=== PATIENT | female | born 1970 | race Caucasian/White ===

== ENCOUNTER → 2018-04-14 | Outpatient (CLI) | payer OTHER ==
[~2018-04-14] MED LIST: GADOBENATE 529MG/1ML 15ML VIAL IVP ONE
--- NOTE | 2018-04-14 16:04 | RADIOLOGY IMAGING REPORT ---
FACILITY: [facility] [place] PATIENT NAME: Amy Jain : 1970 MR: [id number] V: [id number] EXAM DATE: ORDERING PHYSICIAN: MIO SOTELO TECHNOLOGIST: Location: [facility] Patient: Amy Jain : 1970 Visit/Account:[id number] Date of Sevice: 04/14/2018 L SPINE W W/O CONTRAST Provided history: Low back pain. Lupus. Melody-Danlos syndrome. Additional pertinent history: none TECHNIQUE: Multiplanar multisequence lumbar MRI was performed without and with intravenous contra st Contrast dose: 15 mL of MultiHance. COMPARISON STUDIES: No relevant priors FINDINGS: Segment numbering: Lumbosacral junction at L5-S1. No transitional segment. Extra-spinal soft tissues: Benign cyst right kidney. Alignment: Normal Osseous signal pattern: no significant findings Distal thoracic cord / conus / cauda equina: negative Disc Spaces: Lower T spine: Mild narrowing degeneration T11-12 without herniation or stenosis. T12-L1 normal. L1-L2: Disk height and signal pattern normal. No evidence of disk herniation or central stenosis No significant foraminal stenosis. L2-L3: Disk height and signal pattern normal. No evidence of disk herniation or central stenosi s. No significant foraminal stenosis. L3-L4: Previous PLIF and artificial disc placement the central third of the disc space in good posit ion. Previous posterior decompression. No herniation or central stenosis. Foramina are widely bean nt. L4-L5: Prosthetic disc in the anterior half of the disc space in good position. Alignment is normal . L5 pedicular screws have been removed. There is no herniation or central stenosis. Foramina are widely patent. L5-S1: Disk height and signal pattern normal. No evidence of disk herniation or central stenos is. No significant foraminal stenosis. IMPRESSION: 1. Postoperative changes L3-4 and L4-5 with a widely patent central canal and foramina. 2. No new significant degenerative changes and no significant stenosis elsewhere. Report Dictated By: Joseph Sinclair MD at 04/14/2018 3:52 PM Report E-Signed By: Joseph Sinclair MD at 04/14/2018 3:59 PM [id number]
== END ==
LOC: MRI 10:23
PROVIDERS: ATTEND Nurse Practitioner Family
DX: N28.1 Cyst of kidney, acquired (principal); Z98.890 Other specified postprocedural states; M47.894 Other spondylosis, thoracic region
CPT/HCPCS: 72158; A9577

== ENCOUNTER → 2018-04-20 | Outpatient (CLI) | payer OTHER ==
--- NOTE | 2018-04-20 13:26 | RADIOLOGY IMAGING REPORT ---
FACILITY: [facility] PATIENT NAME: Amy Jain : 1970 MR: [id number] V: [id number] EXAM DATE: ORDERING PHYSICIAN: MARIAH HANNA TECHNOLOGIST: Location: [facility] Patient: Amy Jain : 1970 Visit/Account:[id number] Date of Sevice: 04/20/2018 MRI left knee without contrast Indication: Knee pain with popping. Instability. Comparison: None available. Technique: Multiplanar, multisequence MRI examination is performed of the left knee without contrast. Findings: Examination of the medial compartment demonstrates a normal medial meniscus. The articular cartilage surfaces are normal. Examination of the lateral compartment demonstrates a normal lateral meniscus. The articular cartilag e surfaces are normal. Examination of the patellofemoral compartment demonstrates partial-thickness linear fissuring at the median ridge of the patella without subchondral edema or cyst formation. The adjacent trochlear surfa ari are maintained. The ACL and PCL are intact. There is lobulated T2 signal associated with the ACL at its tibial insert ion. This lobulated signal extends along the anterior margin of the joint space and the anterior horn of the lateral meniscus. This measures up to 7 mm x 5 mm x 15 mm in size and is consistent with a ga nglion cyst. There is mild thickening of the proximal third of the MCL with mild surrounding edema. Correlate for a low-grade proximal MCL sprain. No tearing is seen. The lateral collateral ligament complex is maintained. The extensor mechanism is intact. A small joint effusion is seen. There is susceptibility artifact seen along the anterior aspect of th e midportion of the patellar tendon. Correlate clinically. This may be postsurgical. This could also represent a small foreign body. Correlate with plain films. IMPRESSION: 1. Intact left knee menisci and cruciate ligaments. 2. Linear fissuring along the median ridge of the patella. 3. Lobulated ganglion cyst associated with the tibial insertion of the ACL and extending along the an terior horn of the lateral meniscus. See discussion above. 4. Question low-grade proximal third MCL sprain. 5. Focal area of artifact within the soft tissues overlying the middle portion of the patellar tendon . Correlate clinically. Report Dictated By: Mendel Culp at 04/20/2018 1:14 PM Report E-Signed By: Mendel Culp at 04/20/2018 1:22 PM WSN:[id number]
== END ==
LOC: MRI 01:26
PROVIDERS: ATTEND Physician Assistant Surgical
DX: M67.462 Ganglion, left knee (principal)

== ENCOUNTER 2018-05-31 17:23 | Emergency (ER) | payer OTHER ==
--- NOTE | 2018-05-31 18:06 | ER Report ---
History and Physical Time Seen By MD: 18:07 HPI/ROS CHIEF COMPLAINT: Postoperative bruising and pain HISTORY OF PRESENT ILLNESS: 48-year-old female patient presents to emergency room with complaint of postoperative bruising and pain. Patient states that she had her right hip replaced on Friday this past week. She states that she has noticed increased pain whenever she uses the Lovenox shot. Patient states that she had been up and moving around and was doing so without a walker without any assistance. She states that after she takes Lovenox the morning she has significant amounts of pain to the right leg. She states she's noticed worsening bruising since taking the Lovenox. She states that she has almost gone through all of her pain medication because the pain has been so severe. She denies having fevers, however she states she has been chilled and warm, although she believes is likely secondary to her autoimmune diseases. REVIEW OF SYSTEMS: Respiratory: No cough, no dyspnea. Cardiovascular: No chest pain, no palpitations. Gastrointestinal: No vomiting, no abdominal pain. Musculoskeletal: As noted above Allergies: Coded Allergies: tetracycline (Verified Allergy, Severe, 05/31/18) acetaminophen (Verified Allergy, Intermediate, 05/31/18) hydromorphone (Verified Allergy, Intermediate, 05/31/18) morphine (Verified Allergy, Intermediate, 05/31/18) oxycodone (Verified Allergy, Intermediate, 05/31/18) propoxyphene (Verified Allergy, Intermediate, 05/31/18) azithromycin (Verified Allergy, Unknown, 05/31/18) erythromycin base (Verified Allergy, Unknown, 05/31/18) Past Medical/Surgical History Patient has a past medical history of migraines, PO2 yes, asthma, reflux, gastroparesis, hiatal hernia, annular Danlos syndrome, back pain, lupus. Patient has surgical history of thyroidectomy, hysterectomy, shoulder surgery, right hip replacement. Reviewed Nurses Notes: Yes Constitutional Vital Sign - Last 24 Hours 05/31/18 05/31/18 05/31/18 05/31/18 18:05 18:06 18:08 18:23 Temp 98.3 Pulse 75 77 72 Resp 18 B/P (MAP) 134/86 (102) 134/86 Pulse Ox 95 96 96 O2 Delivery Room Air 05/31/18 05/31/18 05/31/18 05/31/18 18:30 19:00 19:05 19:20 Pulse ? B/P (MAP) ???/??? (166) ???/??? (166) 05/31/18 05/31/18 05/31/18 05/31/18 19:30 19:50 20:05 20:15 Pulse ? B/P (MAP) ???/??? (166) 126/78 (94) 05/31/18 05/31/18 05/31/18 05/31/18 20:20 20:30 20:35 20:50 Pulse 72 67 61 B/P (MAP) 123/79 (94) Pulse Ox 92 94 97 05/31/18 05/31/18 21:00 21:05 Pulse 65 B/P (MAP) 120/90 (100) Pulse Ox 93 Physical Exam General Appearance: The patient is alert, has no immediate need for airway protection and no current signs of toxicity. Respiratory: Chest is non tender, lungs are clear to auscultation. Cardiac: regular rate and rhythm Gastrointestinal: Abdomen is soft and non tender, no masses, bowel sounds normal. Musculoskeletal: Neck: Neck is supple and non tender. Extremities have full range of motion and are non tender. Patient has bruising to the right hip, she also has some bruising around the knee. She has tenderness around the bruising, however she does not have any tenderness distal to the bruising. Skin: No rashes or lesions. DIFFERENTIAL DIAGNOSIS: After history and physical exam differential diagnosis was considered for postoperative pain, bruising, hematoma, persistent bleed. Medical Decision Making Data Points Result Diagram: 05/31/18184605/31/181846 Laboratory Hematology Test 05/31/18 17:29 05/31/18 18:37 05/31/18 18:47 Urine Color Yellow Urine Clarity Clear Urine pH 6.0 pH (4.8-9.5) Urine Specific [place] 1.014 Urine Protein Negative mg/dL (NEGATIVE) Urine Glucose (UA) Negative mg/dL (NEGATIVE) Urine Ketones Negative mg/dL (NEGATIVE) Urine Blood Negative (NEGATIVE) Urine Nitrite Negative (NEGATIVE) Urine Bilirubin Negative (NEGATIVE) Urine Urobilinogen 4.0 mg/dL (0.2-1.9) Urine Leukocyte Esterase Negative (NEGATIVE) Urine RBC <1 /HPF (0-2/HPF) Urine WBC <1 /HPF (0-5/HPF) Urine Squamous Epithelial Cells None /LPF (</=FEW) Urine Bacteria Negative /HPF (NONE-FEW) Urine Mucus None /HPF (NONE-FEW) Prothrombin Time 12.0 seconds (12.0-14.4) Prothromb Time International Ratio 0.89 Activated Partial Thromboplast Time 32 seconds (23-35) Red Blood Count 4.22 M/uL (4.17-5.56) Mean Corpuscular Volume 91.3 fL (80.0-96.0) Mean Corpuscular Hemoglobin 32.0 pg (26.0-33.0) Mean Corpuscular Hemoglobin Concent 35.0 g/dL (32.0-36.0) Red Cell Distribution Width 14.7 % (11.5-14.5) Mean Platelet Volume 8.0 fL (7.2-11.1) Neutrophils (%) (Auto) 75.4 % (39.4-72.5) Lymphocytes (%) (Auto) 17.4 % (17.6-49.6) Monocytes (%) (Auto) 5.3 % (4.1-12.4) Eosinophils (%) (Auto) 0.7 % (0.4-6.7) Basophils (%) (Auto) 1.2 % (0.3-1.4) Nucleated RBC Relative Count (auto) 0.2 /100WBC Neutrophils # (Auto) 7.4 K/uL (2.0-7.4) Lymphocytes # (Auto) 1.7 K/uL (1.3-3.6) Monocytes # (Auto) 0.5 K/uL (0.3-1.0) Eosinophils # (Auto) 0.1 K/uL (0.0-0.5) Basophils # (Auto) 0.1 K/uL (0.0-0.1) Nucleated RBC Absolute Count (auto) 0.02 K/uL Peripheral Blood Smear Yes Y/N Sodium Level 140 mmol/L (137-145) Potassium Level 4.1 mmol/L (3.5-5.0) Chloride Level 101 mmol/L (98-107) Carbon Dioxide Level 29 mmol/L (22-31) Blood Urea Nitrogen 14 mg/dl (7-18) Creatinine 0.90 mg/dl (0.52-1.04) Glomerular Filtration Rate Calc > 60.0 Random Glucose 107 mg/dl (75-110) Calcium Level 9.0 mg/dl (8.4-10.2) Total Bilirubin 0.8 mg/dl (0.2-1.3) Aspartate Amino Transf (AST/SGOT) 34 U/L (0-35) Alanine Aminotransferase (ALT/SGPT) 50 U/L (0-56) Alkaline Phosphatase 60 U/L (0-126) Total Protein 6.3 g/dl (6.3-8.2) Albumin 3.6 g/dl (3.5-5.0) Chemistry Test 05/31/18 17:29 05/31/18 18:37 05/31/18 18:47 Urine Color Yellow Urine Clarity Clear Urine pH 6.0 pH (4.8-9.5) Urine Specific [place] 1.014 Urine Protein Negative mg/dL (NEGATIVE) Urine Glucose (UA) Negative mg/dL (NEGATIVE) Urine Ketones Negative mg/dL (NEGATIVE) Urine Blood Negative (NEGATIVE) Urine Nitrite Negative (NEGATIVE) Urine Bilirubin Negative (NEGATIVE) Urine Urobilinogen 4.0 mg/dL (0.2-1.9) Urine Leukocyte Esterase Negative (NEGATIVE) Urine RBC <1 /HPF (0-2/HPF) Urine WBC <1 /HPF (0-5/HPF) Urine Squamous Epithelial Cells None /LPF (</=FEW) Urine Bacteria Negative /HPF (NONE-FEW) Urine Mucus None /HPF (NONE-FEW) Prothrombin Time 12.0 seconds (12.0-14.4) Prothromb Time International Ratio 0.89 Activated Partial Thromboplast Time 32 seconds (23-35) White Blood Count 9.8 k/uL (4.5-11.0) Red Blood Count 4.22 M/uL (4.17-5.56) Hemoglobin 13.5 g/dL (12.0-16.0) Hematocrit 38.5 % (34.0-47.0) Mean Corpuscular Volume 91.3 fL (80.0-96.0) Mean Corpuscular Hemoglobin 32.0 pg (26.0-33.0) Mean Corpuscular Hemoglobin Concent 35.0 g/dL (32.0-36.0) Red Cell Distribution Width 14.7 % (11.5-14.5) Platelet Count 343 K/uL (150-450) Mean Platelet Volume 8.0 fL (7.2-11.1) Neutrophils (%) (Auto) 75.4 % (39.4-72.5) Lymphocytes (%) (Auto) 17.4 % (17.6-49.6) Monocytes (%) (Auto) 5.3 % (4.1-12.4) Eosinophils (%) (Auto) 0.7 % (0.4-6.7) Basophils (%) (Auto) 1.2 % (0.3-1.4) Nucleated RBC Relative Count (auto) 0.2 /100WBC Neutrophils # (Auto) 7.4 K/uL (2.0-7.4) Lymphocytes # (Auto) 1.7 K/uL (1.3-3.6) Monocytes # (Auto) 0.5 K/uL (0.3-1.0) Eosinophils # (Auto) 0.1 K/uL (0.0-0.5) Basophils # (Auto) 0.1 K/uL (0.0-0.1) Nucleated RBC Absolute Count (auto) 0.02 K/uL Peripheral Blood Smear Yes Y/N Glomerular Filtration Rate Calc > 60.0 Calcium Level 9.0 mg/dl (8.4-10.2) Total Bilirubin 0.8 mg/dl (0.2-1.3) Aspartate Amino Transf (AST/SGOT) 34 U/L (0-35) Alanine Aminotransferase (ALT/SGPT) 50 U/L (0-56) Alkaline Phosphatase 60 U/L (0-126) Total Protein 6.3 g/dl (6.3-8.2) Albumin 3.6 g/dl (3.5-5.0) Coagulation Test 05/31/18 18:37 Prothrombin Time 12.0 seconds Prothromb Time International Ratio 0.89 Activated Partial Thromboplast Time 32 seconds Urinalysis Test 05/31/18 17:29 Urine Color Yellow Urine Clarity Clear Urine pH 6.0 pH (4.8-9.5) Urine Specific [place] 1.014 Urine Protein Negative mg/dL (NEGATIVE) Urine Glucose (UA) Negative mg/dL (NEGATIVE) Urine Ketones Negative mg/dL (NEGATIVE) Urine Blood Negative (NEGATIVE) Urine Nitrite Negative (NEGATIVE) Urine Bilirubin Negative (NEGATIVE) Urine Urobilinogen 4.0 mg/dL (0.2-1.9) Urine Leukocyte Esterase Negative (NEGATIVE) Urine RBC <1 /HPF (0-2/HPF) Urine WBC <1 /HPF (0-5/HPF) Urine Squamous Epithelial Cells None /LPF (</=FEW) Urine Bacteria Negative /HPF (NONE-FEW) Urine Mucus None /HPF (NONE-FEW) EKG/Imaging Imaging INDICATION: post surgical pain. DATE: 05/31/2018 8:05 PM. TECHNIQUE: FEMUR RIGHT W CONTRAST. Postcontrast axial CT imaging was performed through the right femur with sagittal and coronal reformats. 95 mL Isovue 370 administered. One of the following dose optimization techniques was utilized in the performance of this exam: Automated exposure control; adjustment of the mA and/or kV according to the patient's size; or use of an iterative reconstruc tion technique. Specific details can be referenced in the facility's radiology CT exam operational policy. COMPARISON: None relevant. FINDINGS: The right hip prosthesis appears intact without evidence of periprosthetic fracture or loosening. No dislocation. The acetabular wall appears intact. Soft tissue gas within the anterolateral soft tissues is commensurate with an anterolateral approach and is as expected postoperatively. Small foci of high density material within the operative bed superficially presumably reflect vascular ligature or fascial closure. There is expected stranding along the operative site. No discrete fluid collection or abscess. IMPRESSION: Right hip prosthesis without apparent complication. Report Dictated By: Shilpa Rodriguez MD at 05/31/2018 8:05 PM Report E-Signed By: Shilpa Rodriguez MD at 05/31/2018 8:16 PM ED Course/Re-evaluation ED Course Patient was admitted to an exam room, history and physical were obtained. Differential diagnoses were considered. On examination lungs are clear, heart is regular, abdomen is soft and nontender. Patient had pain and swelling to the right leg. Swelling appeared to be fairly mild at this point in time. A CBC, CMP, urinalysis, CT scan of the right femur was done. Lab work was unremarkable. CT scan of the femur showed changes which would be consistent with recent surgery. I discussed the case with Dr. Stearns, orthopedic surgeon in [place] who is an associate of Dr. Erickson who did the surgery. He felt that the bruising that she was having was likely secondary to surgery and not necessarily the anticoagulation. He wanted to go ahead and continue with anticoagulation as is and have her call into the office tomorrow. He felt that they would likely want to change her anticoagulation to something different such as Xarelto. However with patient not tolerating aspirin in the hospital I do have concerns about her being able to tolerate Xarelto. I discussed the findings with the patient as well as my discussion with Dr. Stearns. We'll go ahead and discharge patient home at this time. She is to return to the emergency room if condition worsens. I recommend that she follow-up with the orthopedic surgeon to get more pain medication as that will look more appropriate than getting a prescription from the emergency room as well. Patient verbalized understanding and agreement with plan. Decision to Disposition Date: May 31, 2018 Decision to Disposition Time: 21:02 Depart Departure Latest Vital Signs Vital Signs Date Time Temp Pulse Resp B/P (MAP) Pulse Ox O2 Delivery O2 Flow Rate FiO2 05/31/18 21:05 65 93 05/31/18 21:00 120/90 (100) 05/31/18 18:06 98.3 18 Room Air Impression: Primary Impression: Post surgical complication Condition: Improved Disposition: HOME OR SELF-CARE Patient Instructions: GENERAL ER DISCHARGE INSTRUCTIONS Additional Instructions: Limit activity by pain. Elevate leg. Take your medication as prescribed. Call your surgeons office tomorrow. Return to the ER if condition worsens. Increase fluid intake. Problem Qualifiers Primary Impression: Post surgical complication Surgical complication system/body Area: subcutaneous tissue Surgical complication type: other Qualified Codes: L76.82 - Other postprocedural complications of skin and subcutaneous tissue MIO SOTELO May 31, 2018 18:06
[2018-05-31] MEDS ORDERED: IOPAMIDOL 76% 100 ML INFUS BTL 100 ML ONE (18:27)
[2018-05-31] MEDS ORDERED: fentaNYL CITR 100 MCG/2 ML AMP IVP ONE ×2 (18:45→19:15)
[2018-05-31 18:59] LABS: PLATELET COUNT, AUTOMATED 343 K/uL (150-450)
[2018-05-31 19:42] LABS: INR 0.89
--- NOTE | 2018-05-31 20:20 | RADIOLOGY IMAGING REPORT ---
FACILITY: [facility] [place] PATIENT NAME: Amy Jain : 1970 MR: [id number] V: [id number] EXAM DATE: ORDERING PHYSICIAN: MIO SOTELO TECHNOLOGIST: Location: [facility] [place] Patient: Amy Jain : 1970 Visit/Account:[id number] Date of Sevice: 05/31/2018 INDICATION: post surgical pain. DATE: 05/31/2018 8:05 PM. TECHNIQUE: FEMUR RIGHT W CONTRAST. Postcontrast axial CT imaging was performed through the right fem ur with sagittal and coronal reformats. 95 mL Isovue 370 administered. One of the following dose op timization techniques was utilized in the performance of this exam: Automated exposure control; adjus tment of the mA and/or kV according to the patient's size; or use of an iterative reconstruction ernestine hnique. Specific details can be referenced in the facility's radiology CT exam operational policy. COMPARISON: None relevant. FINDINGS: The right hip prosthesis appears intact without evidence of periprosthetic fracture or loos ening. No dislocation. The acetabular wall appears intact. Soft tissue gas within the anterolateral soft tissues is commensurate with an anterolateral approach and is as expected postoperatively. Small foci of high density material within the operative bed sup erficially presumably reflect vascular ligature or fascial closure. There is expected stranding patricia g the operative site. No discrete fluid collection or abscess. IMPRESSION: Right hip prosthesis without apparent complication. Report Dictated By: Shilpa Rodriguez MD at 05/31/2018 8:05 PM Report E-Signed By: Shilpa Rodriguez MD at 05/31/2018 8:16 PM [id number]
[2018-05-31 21:00] VITALS: BP 120/90
== END 2018-05-31 21:10 | disposition home or self-care (01) ==
LOC: ER 18:02
DX: L76.82 Other postprocedural complications of skin and subcutaneous tissue (principal); Z96.641 Presence of right artificial hip joint; Z79.01 Long term (current) use of anticoagulants
CPT/HCPCS: 73701; 81001; 85025; 85610; 85730; 96374; 99284; J3010; Q9967; 82040; 82247; 82310; 82374; 82435; 82565; 82947; 84075; 84132; 84155; 84295; 84450; 84460; 84520

== ENCOUNTER 2018-08-26 09:27 | Outpatient (RCR) | payer OTHER ==
--- NOTE | 2018-06-04 10:23 | PT INITIAL EVALUATION ---
MEDICAL DIAGNOSIS: R Hip Pain, Unilateral primary osteoarthritis TREATMENT DIAGNOSIS: s/p R RYAN, generalized weakness, Melody-Danlos DATE OF ONSET: 05/25/18 SUBJECTIVE: Amy is a 48 year old female s/p R RYAN with an anterior approach on May 25, 2018. Pt has a past medical history significant for Melody- Danlos and Lupus. Pt states that in the future she will be having her L hip replaced as well as B knees. Pt presents to physical therapy using a single point cane for gait and stability but states that she is only using the cane when she is ambulating community distances. Pt states that her incision site had a wound dressing with a negative pressure pump to prevent infection. However, pt states that the pump stopped working on Friday, 06/01. Pt states that she is currently having no pain, but pain increases at night to a 7-8/10 at worst. Pt states that she is managing her pain with ice and pain medication. Pt also reports that she took a tumble down the stairs a few days ago but reports that the hip is doing okay, but does have some lateral R knee pain. Pt states that her R hip is about 5 mm higher than the L. Pt reports that she would like to return to her occupation at the [employer] for [employer]. REHAB PROBLEM LIST: Increased Pain Decreased ROM Decreased Strength Decreased Endurance Decreased Balance Decreased Function Decreased ADL's Decreased Mobility Decreased Gait PREVIOUS MEDICAL HISTORY: See EMR OBJECTIVE: Through assessment of pt's incision site, slight skin irritation was found around the bandage around the incision site. No signs of infection. ROM: Hip ROM (R,L): Flexion: 95 w/ pain, 116, Abd: 40, 50, Ext: Not tested at this time Strength: Hip MMT (R, L):flex: 4-, 4, Abd: 3+, 4, Add: 5, 5 Knee MMT (R, L): Ext: 5 w/ lat. knee pain, 5, flex: 4+ w/ slight hip pain, 5, B Medial and lateral quad activation is equal at 10/10 repetitions. Ankle MMT (R, L): DF: 4, 4, PF: 5, 5 Gait: Pt is using a single point cane to ambulate community distances but is using no assistive device for household distances. Pt has a R hip hike in swing phase of gait. Other Objective Findings: FOTO Hip Functional Status: 23/50 - 54% impairment ASSESSMENT: Amy presents to physical therapy with signs and symptoms consistent with a R RYAN. Physical therapy is indicated to address the above impairments to improve overall function with ADL's and to return to occupational responsibilities. Upon first treatment pt was started on HEP and a heel lift was inserted into the L shoe to help achieve equal PSIS alignment. Short Term Goals In 3 weeks pt will no longer require assistive device for community distances to improve function with ADL's. In 3 weeks pt will improve R hip ROM to equal to the contralateral side to improve function with ADL's and occupational responsibilities. In 6 weeks pt will improve LE MMT to 5/5 bilaterally to improve overall function with ADL's and occupational responsibilities. In 6 weeks pt will improve FOTO Hip Functional Status to 42% impairment improving FOTO hip functional status to 29/50. Patient's Goals Pt's goals are to return to work, lose weight and improve overall mobility. PLAN: Patient to be seen for Manual Therapy/STM/MET Strengthening/condition Ice/Heat Range of Motion Ultrasound Stretching Iontophoresis Neuromuscular Re-ed Closed Chain Program Electrical Stim Posture/Body mechanics Gait Trg/Balance Trg Biofeedback Home Exercise Program Therapeutic Activities 2x/Week for 6 Weeks If you have any questions, comments, or concerns about this report or plan, please contact me at . Thank you, Colette Ayon, PT, DPT, CLT Ricarda Higgins, SPT This Physical Therapist was present for the entire physical therapy session directing the services, making the skilled judgement, and was not engaged in treating another patient or doing another task at the same time as the treatment session. GABID
--- NOTE | 2018-07-20 12:42 | PT PLAN OF CARE ---
Physician: Dr. Yayo Erickson Patient is being seen: 2x/Week Therapist: Colette Ayon, PT, DPT, CLT Medical Diagnosis: R Hip Pain, Unilateral primary osteoarthritis Treatment Diagnosis: s/p R RYAN, generalized weakness, Melody-Danlos Date of Onset: 05/25/18 Date of Initial Evaluation: 06/04/18 Date patient was last seen: 07/20/18 Number of treatments: 9 Number of cancellations/No shows: 2 INTERVENTIONS: Manual Therapy/STM/MET Strengthening/condition Ice/Heat Range of Motion Ultrasound Stretching Iontophoresis Neuromuscular Re-ed Closed Chain Program Electrical Stim Posture/Body mechanics Gait Trg/Balance Trg Biofeedback Home Exercise Program Therapeutic Activities GOALS: In 6 weeks pt will improve LE MMT to 5/5 bilaterally to improve overall function with ADL's and occupational responsibilities. In Progress In 6 weeks pt will improve R hip ROM to equal to the contralateral side to improve function with ADL's and occupational responsibilities. MET In 3 weeks pt will no longer require assistive device for community distances to improve function with ADL's. MET In 6 weeks pt will improve FOTO Hip Functional Status to 42% impairment improving FOTO hip functional status to 29/50. MET PATIENT'S GOAL: Pt's goals are to return to work, lose weight and improve overall mobility. Status of Patient's Goals: 3/4 MET, 1/4 In Progress Patient Compliance: Good Prognosis: Good Reasons for discharge from therapy: Amy is to discharge from physical therapy at this time secondary to insurance restrictions. At the time of discharge, Amy shows good progress with normal hip ROM and improved hip strength and stability. Pt remains to have anterior hip impingement with squatting motions, but shows improvement with slow work for capsular mobility. Additionally, pt shows some SIJ hypermobility resulting in neurological impingement down the L leg which was assessed and should improve with exercise. Pt was placed on an HEP to continue gains in strength and improved function with the R hip. Pt is to have L RYAN on 07/16/18 at this time and will receive further PT following this surgery which will likely further progress the R hip. ROM: Hip ROM (R,L): Flexion: 120, 116 Strength: Hip MMT (R, L):flex: 4+, 4, Abd: 5, 5, Add: 5, 5, ext: 4+, 5- Knee MMT (R, L): Ext: 5 , 5, flex: 5, 5. Ankle MMT (R, L): DF: 5, 5, PF: 5, 5 Outcome Measure: TO Hip Functional Status 36/50=28% impairment. If you have any questions or concerns, please feel free to contact me at [phone]. Thank you, Colette Ayon, PT, DPT, CLT MTDD
--- NOTE | 2018-08-10 15:20 | PT PLAN OF CARE ---
Physician: Dr. Yayo Erickson Patient is being seen: 2/week Therapist: Evin Garcia, PT, DPT Medical Diagnosis: L Hip Pain, Unilateral primary osteoarthritis Treatment Diagnosis: s/p L RYAN, generalized weakness, Melody-Danlos Date of Onset: 05/25/18 Date of Initial Evaluation: 06/04/18 Date patient was last seen: 08/10/18 Number of treatments: 10: reassessment of L RYAN Number of cancellations/No shows: 0 INTERVENTIONS: Manual Therapy/STM/MET Strengthening/condition Ice/Heat Range of Motion Ultrasound Stretching Iontophoresis Neuromuscular Re-ed Closed Chain Program Electrical Stim Posture/Body mechanics Gait Trg/Balance Trg Biofeedback Home Exercise Program Therapeutic Activities GOALS: In 6 weeks pt will improve LE MMT to 5/5 bilaterally to improve overall function with ADL's and occupational responsibilities. In 6 weeks pt will improve R hip ROM to equal to the contralateral side to improve function with ADL's and occupational responsibilities. In 3 weeks pt will no longer require assistive device for community distances to improve function with ADL's. In 6 weeks pt will improve FOTO Hip Functional Status to 42% impairment improving FOTO hip functional status to 29/50. PATIENT'S GOAL: Pt's goals are to return to work, lose weight and improve overall mobility. Status of Patient's Goals: [g OPPT.GOALS] Patient Compliance: [g PT.GFPNA] Prognosis: Good Reasons for continuing therapy: This is a reassessment of her L hip replacement that occurred on 08/05/18. She reports that she tweaked her R hip 1.5 weeks prior to having the L hip replaced. She reports that she tried to get xrays on the R hip prior to the L hip but she states that the PA blew her off while [place] surgeon [place]. She reports that she is having a much more difficult time since she has a pinching pain on the R hip and increased L hip pain around the incision. She reports that it feels like someone or something is constantly cutting like sensation. She rates her current pain to 7-8/10 with tears flowing. She reports that she has had times where she is a 10/10. She reports that it is extremely difficult to walk, to move, to get up from a chair due to the new L hip replacement and the pain coming from the older R hip replacement. She reports that she will change the bandage this Friday and then will follow up with her surgeon the following Friday. Based on my examination, she presents to physical therapy with signs and symptoms consistent with L RYAN. We will addressed the listed impairments to return to prior level of function to increased QOL. OBJECTIVE: Through assessment of pt's incision site, slight skin irritation was found around the bandage around the incision site. No signs of infection ROM: Hip ROM (R,L): Flexion: 90 w/ pain, 116, Abd: 40, 50, Ext: Not tested at this time Strength: Hip MMT (R, L):flex: 4, 3, Abd: 4, 3, Add: 5, 5 Knee MMT (R, L): Ext: 5 w/ lat. knee pain, 5, flex: 5, 5, B Quad activation is great. Ankle MMT (R, L): DF: 4, 4, PF: 5, 5 Gait: Pt is using a FWW to ambulate community distances and for household distances. Pt has a L LE circumduction in swing phase of gait. Other Objective Findings: FOTO Hip Functional Status: 1050 - 80% impairment If you have any questions or concerns, please contact me at [phone]. Thank you, Evin Garcia, PT, DPT GABID
[2018-08-29] MEDS ORDERED: PROM-110 PO (06:55)
[2018-08-29] MEDS ORDERED: DICL18CA (06:55)
[2018-08-29] MEDS ORDERED: HYDR-653 PO (06:55)
[2018-08-29] MEDS ORDERED: PRED-420 PO (06:55)
[2018-08-29] MEDS ORDERED: TIZA4CAP6 PO (06:55)
[2018-08-29] MEDS ORDERED: [UNRECOGNIZED DRUG - CODE] IU (06:55)
[2018-08-29] MEDS ORDERED: ESOM40CA42 PO (06:55)
[2018-08-29] MEDS ORDERED: LOR1 (06:55)
[2018-08-29] MEDS ORDERED: ONDA4TAB9 PO (06:55)
[2018-08-29] MEDS ORDERED: AMIT-108 PO (06:55)
[2018-08-29] MEDS ORDERED: GABA-549 PO (06:55)
[2018-08-29] MEDS ORDERED: MIRA25TA PO (06:55)
[2018-08-29] MEDS ORDERED: METH-542 PO (06:55)
[2018-08-29] MEDS ORDERED: NEBI5TAB PO (06:55)
[2018-08-29] MEDS ORDERED: BELI120V IV (06:55)
[2018-08-29] MEDS ORDERED: LEVO-3 PO (06:55)
[2018-08-30] MEDS ORDERED: FLUC150T40 PO (10:06)
== END 2018-09-02 ==
LOC: PT 09:27
PROVIDERS: ATTEND Orthopaedic Surgery
DX: Z47.1 Aftercare following joint replacement surgery (principal); M16.11 Unilateral primary osteoarthritis, right hip; Z96.641 Presence of right artificial hip joint; R53.1 Weakness; Q79.6 Ehlers-Danlos syndromes; M25.561 Pain in right knee
CPT/HCPCS: 97162

== ENCOUNTER → 2018-08-27 | Outpatient (CLI) | payer OTHER ==
--- NOTE | 2018-08-27 10:33 | RADIOLOGY IMAGING REPORT ---
FACILITY: [facility] - [place] PATIENT NAME: Amy Jain : 1970 MR: [id number] V: [id number] EXAM DATE: ORDERING PHYSICIAN: LIZZY ECHEVARRIA TECHNOLOGIST: Location: [facility] Patient: Amy Jain : 1970 Visit/Account:[id number] Date of Sevice: 08/27/2018 MRI pelvis and right hip Indication: Pain. History of arthroplasty. Popping sensation. Comparison: CT scan 05/31/2018 was reviewed. Technique: Multiplanar, multisequence MRI examination is performed of the pelvis and right hip withou t contrast. Metal artifact reduction sequences were utilized. Findings: There are bilateral total hip arthroplasties in place. The left total hip arthroplasty is new since t May 2018 CT scan. On the right, there is metal susceptibility artifact related to the arthroplasty device. Given the li mitations, there is edema present within the soft tissues anterior to the hip joint and involving the proximal quadriceps musculature. This is due to complete avulsion of the rectus femoris tendon from the right anterior-inferior iliac spine. This is best appreciated in the coronal plane. There is up t o 1.3 cm of tendon retraction at the site of tendon avulsion. The edema present in the soft tissues a ppears centered about the proximal myotendinous junction. There is expected operative bed scarring wi th trace fluid anteriorly and lateral to the hip joint in keeping with prior arthroplasty placement. On the left side, there is fluid signal seen anterior to the hip joint likely an operative bed seroma . This suggests an anterior approach for arthroplasty placement. Correlate clinically. There is an ad ditional area of fluid signal within the subcutaneous tissues anteriorly and laterally. This measures up to 7.4 x 2.3 x 12.9 cm in size. This is also most consistent with an evolving operative bed serom a. Marrow pattern of the bony pelvis and sacrum is normal. Postoperative changes involve the low lumbar spine. IMPRESSION: 1. Complete avulsion of the right rectus femoris tendon from its origin from the right anterior infer ior iliac spine with up to 1.3 cm of tendon retraction. There is associated myotendinous edema extend ing into the upper thigh musculature. 2. Interval placement of a left total hip arthroplasty since prior CT imaging in May 2018 with s uspected operative bed seroma formation within the anterior musculature and in the anterolateral subc utaneous tissues. Measurements of the subcutaneous collection as reported above. Report Dictated By: Mendel Culp at 08/27/2018 10:13 AM Report E-Signed By: Mendel Culp at 08/27/2018 10:29 AM WSN:[id number]
== END ==
LOC: MRI 00:49
PROVIDERS: ATTEND Nurse Practitioner Family
DX: S39.093A Other injury of muscle, fascia and tendon of pelvis, initial encounter (principal); Z96.642 Presence of left artificial hip joint

== ENCOUNTER 2018-08-29 06:32 | Observation (INO) | payer OTHER ==
[2018-08-29] VITALS (8 sets, daily range): BP systolic 77–135; BP diastolic 50–83
[~2018-08-29] VITALS: Ht 167.6 cm; Wt 103.9 kg
[2018-08-29] MEDS ORDERED: ESOM40CA42 PO (06:55)
[2018-08-29] MEDS ORDERED: TIZA4CAP6 PO (06:55)
[2018-08-29] MEDS ORDERED: DICL18CA (06:55)
[2018-08-29] MEDS ORDERED: BELI120V IV (06:55)
[2018-08-29] MEDS ORDERED: LOR1 (06:55)
[2018-08-29] MEDS ORDERED: LEVO-3 PO (06:55)
[2018-08-29] MEDS ORDERED: PROM-110 PO (06:55)
[2018-08-29] MEDS ORDERED: MIRA25TA PO (06:55)
[2018-08-29] MEDS ORDERED: [UNRECOGNIZED DRUG - CODE] IU (06:55)
[2018-08-29] MEDS ORDERED: NEBI5TAB PO (06:55)
[2018-08-29] MEDS ORDERED: PRED-420 PO (06:55)
[2018-08-29] MEDS ORDERED: METH-542 PO (06:55)
[2018-08-29] MEDS ORDERED: HYDR-653 PO (06:55)
[2018-08-29] MEDS ORDERED: AMIT-108 PO (06:55)
[2018-08-29] MEDS ORDERED: ONDA4TAB9 PO (06:55)
[2018-08-29] MEDS ORDERED: GABA-549 PO (06:55)
--- NOTE | 2018-08-29 07:05 | ER Report ---
History and Physical Time Seen By MD: 07:05 Hx. of Stated Complaint: RLQ abd. pain since last night; at 0420 patient had "two of norco for hip pain" HPI/ROS CHIEF COMPLAINT: Right lower quadrant abdominal pain since yesterday HISTORY OF PRESENT ILLNESS: Patient is a 48-year-old female here with complaints of right lower quadrant abdominal pain since yesterday. Patient took 2 of her [place] tablets this morning at approximate 420 which she is prescribed for hip pain status post hip replacement bilaterally. 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 Patient denies having prior appendectomy. Patient does report that the pain is significantly worse this morning prompting evaluation. Patient is afebrile at time of evaluation complaining of severe sharp pain. Denies urinary complaints, diarrhea, melena. REVIEW OF SYSTEMS: Constitutional: No fever, no chills. Eyes: No discharge. ENT: No sore throat. Cardiovascular: No chest pain, no palpitations. Respiratory: No cough, no shortness of breath. Gastrointestinal: + Right lower quadrant abdominal pain, + nausea Genitourinary: No hematuria. No urgency Musculoskeletal: No back pain. Skin: No rashes. Neurological: No headache. Allergies: Coded Allergies: tetracycline (Verified Allergy, Severe, 05/31/18) acetaminophen (Verified Allergy, Intermediate, 05/31/18) hydromorphone (Verified Allergy, Intermediate, 05/31/18) morphine (Verified Allergy, Intermediate, 05/31/18) oxycodone (Verified Allergy, Intermediate, 05/31/18) propoxyphene (Verified Allergy, Intermediate, 05/31/18) azithromycin (Verified Allergy, Unknown, 05/31/18) erythromycin base (Verified Allergy, Unknown, 05/31/18) Home Meds Active Scripts Fluconazole (DIFLUCAN) 150 Mg Tablet, 300 MG PO QDAY for prophylaxis for 2 Days, CAP Prov:LINDA ROSE MD 08/30/18 Reported Medications Methocarbamol (ROBAXIN) 500 Mg Tablet, 1500 MG PO TID 08/29/18 Mirabegron (MYRBETRIQ) 25 Mg Tab.er.24h, 25 MG PO 08/29/18 Hyaluronate Sodium (ORTHOVISC) 30 Mg/2 Ml Disp.syrin, 30 MG IU 08/29/18 Gabapentin (GABAPENTIN) 300 Mg Capsule, 300 MG PO TID, CAPSULE 08/29/18 Prednisone 10 Mg Tab (PREDNISONE 10 MG TAB) 10 Mg Tab.ds.pk, 10 MG PO, TAB 08/29/18 Nebivolol Hcl (BYSTOLIC) 5 Mg Tablet, 15 MG PO 08/29/18 Levothyroxine Sodium (LEVOTHYROXINE SODIUM) 100 Mcg Tablet, 100 MCG PO QDAY, TAB 08/29/18 Lorazepam (LORAZEPAM) 1 Mg Tab, TAB 08/29/18 Tizanidine Hcl (ZANAFLEX) 4 Mg Capsule, 4 MG PO TID, CAPSULE 08/29/18 Ondansetron 4 Mg Odt (ONDANSETRON 4 MG ODT) 4 Mg Tab.rapdis, 4 MG PO ONCE, TAB 08/29/18 Promethazine Hcl (PROMETHAZINE HCL) 25 Mg Tablet, 25 MG PO Q8H, TAB 08/29/18 Hydrocodone Bit/Acetaminophen (NORCO 5-325 TABLET) 1 Each Tablet, 10 MG PO Q4- 6H, TAB 08/29/18 Amitriptyline Hcl (AMITRIPTYLINE HCL) 50 Mg Tablet, 50 MG PO QHS, #5 TAB 08/29/18 Diclofenac Submicronized (Zorvolex) 18 Mg Capsule 08/29/18 Esomeprazole Magnesium (NEXIUM) 40 Mg Capsule.dr, 1 CAP PO QDAY, CAP 08/29/18 Hx Substance Use Disorder: No Hx Alcohol Use: No Constitutional Physical Exam General Appearance: The patient is alert, has no immediate need for airway protection and no signs of toxicity. No acute distress Eyes: Pupils equal and round no pallor or injection. ENT, Mouth: Mucous membranes are moist. Respiratory: There are no retractions, lungs are clear to auscultation. Cardiovascular: Regular rate and rhythm. [ ] Gastrointestinal: Right lower quadrant abdominal pain, no rebound or guarding or peritoneal signs Neurological: No focal neurological findings Skin: Warm and dry, no rashes. Musculoskeletal: Neck is supple non tender. Extremities are nontender, nonswollen and have full range of motion. DIFFERENTIAL DIAGNOSIS: After history and physical exam differential diagnosis was considered for abdominal pain including but not limited to appendicitis, cholecystitis, gastritis and urinary tract infection. Medical Decision Making Data Points Laboratory Hematology Test 08/29/18 07:56 2/23/19 08:28 Red Blood Count 4.11 M/uL (4.17-5.56) Mean Corpuscular Volume 90.7 fL (80.0-96.0) Mean Corpuscular Hemoglobin 29.6 pg (26.0-33.0) Mean Corpuscular Hemoglobin Concent 32.6 g/dL (32.0-36.0) Red Cell Distribution Width 15.0 % (11.5-14.5) Mean Platelet Volume 8.2 fL (7.2-11.1) Neutrophils (%) (Auto) 61.7 % (39.4-72.5) Lymphocytes (%) (Auto) 27.9 % (17.6-49.6) Monocytes (%) (Auto) 7.3 % (4.1-12.4) Eosinophils (%) (Auto) 2.2 % (0.4-6.7) Basophils (%) (Auto) 0.9 % (0.3-1.4) Nucleated RBC Relative Count (auto) 0.0 /100WBC Neutrophils # (Auto) 4.6 K/uL (2.0-7.4) Lymphocytes # (Auto) 2.1 K/uL (1.3-3.6) Monocytes # (Auto) 0.5 K/uL (0.3-1.0) Eosinophils # (Auto) 0.2 K/uL (0.0-0.5) Basophils # (Auto) 0.1 K/uL (0.0-0.1) Nucleated RBC Absolute Count (auto) 0.00 K/uL Sodium Level 136 mmol/L (137-145) Potassium Level 3.7 mmol/L (3.5-5.0) Chloride Level 106 mmol/L (98-107) Carbon Dioxide Level 25 mmol/L (22-31) Blood Urea Nitrogen 15 mg/dl (7-18) Creatinine 0.70 mg/dl (0.52-1.04) Glomerular Filtration Rate Calc > 60.0 Random Glucose 87 mg/dl (75-110) Calcium Level 8.4 mg/dl (8.4-10.2) Total Bilirubin 0.7 mg/dl (0.2-1.3) Aspartate Amino Transf (AST/SGOT) 17 U/L (0-35) Alanine Aminotransferase (ALT/SGPT) 25 U/L (0-56) Alkaline Phosphatase 72 U/L (0-126) C-Reactive Protein 2.0 mg/dl (<1.0) Total Protein 6.2 g/dl (6.3-8.2) Albumin 3.7 g/dl (3.5-5.0) Lipase 74 U/L (23-300) Urine Color Straw Urine Clarity Clear Urine pH 7.0 pH (4.8-9.5) Urine Specific Comfort 1.005 Urine Protein Negative mg/dL (NEGATIVE) Urine Glucose (UA) Negative mg/dL (NEGATIVE) Urine Ketones Negative mg/dL (NEGATIVE) Urine Blood Negative (NEGATIVE) Urine Nitrite Negative (NEGATIVE) Urine Bilirubin Negative (NEGATIVE) Urine Urobilinogen Negative mg/dL (0.2-1.9) Urine Leukocyte Esterase Negative (NEGATIVE) Urine RBC None /HPF (0-2/HPF) Urine WBC <1 /HPF (0-5/HPF) Urine Squamous Epithelial Cells Few /LPF (</=FEW) Urine Bacteria Few /HPF (NONE-FEW) Urine Mucus None /HPF (NONE-FEW) Chemistry Test 08/29/18 07:56 08/29/18 08:28 White Blood Count 7.4 k/uL (4.5-11.0) Red Blood Count 4.11 M/uL (4.17-5.56) Hemoglobin 12.2 g/dL (12.0-16.0) Hematocrit 37.3 % (34.0-47.0) Mean Corpuscular Volume 90.7 fL (80.0-96.0) Mean Corpuscular Hemoglobin 29.6 pg (26.0-33.0) Mean Corpuscular Hemoglobin Concent 32.6 g/dL (32.0-36.0) Red Cell Distribution Width 15.0 % (11.5-14.5) Platelet Count 293 K/uL (150-450) Mean Platelet Volume 8.2 fL (7.2-11.1) Neutrophils (%) (Auto) 61.7 % (39.4-72.5) Lymphocytes (%) (Auto) 27.9 % (17.6-49.6) Monocytes (%) (Auto) 7.3 % (4.1-12.4) Eosinophils (%) (Auto) 2.2 % (0.4-6.7) Basophils (%) (Auto) 0.9 % (0.3-1.4) Nucleated RBC Relative Count (auto) 0.0 /100WBC Neutrophils # (Auto) 4.6 K/uL (2.0-7.4) Lymphocytes # (Auto) 2.1 K/uL (1.3-3.6) Monocytes # (Auto) 0.5 K/uL (0.3-1.0) Eosinophils # (Auto) 0.2 K/uL (0.0-0.5) Basophils # (Auto) 0.1 K/uL (0.0-0.1) Nucleated RBC Absolute Count (auto) 0.00 K/uL Glomerular Filtration Rate Calc > 60.0 Calcium Level 8.4 mg/dl (8.4-10.2) Total Bilirubin 0.7 mg/dl (0.2-1.3) Aspartate Amino Transf (AST/SGOT) 17 U/L (0-35) Alanine Aminotransferase (ALT/SGPT) 25 U/L (0-56) Alkaline Phosphatase 72 U/L (0-126) C-Reactive Protein 2.0 mg/dl (<1.0) Total Protein 6.2 g/dl (6.3-8.2) Albumin 3.7 g/dl (3.5-5.0) Lipase 74 U/L (23-300) Urine Color Straw Urine Clarity Clear Urine pH 7.0 pH (4.8-9.5) Urine Specific Comfort 1.005 Urine Protein Negative mg/dL (NEGATIVE) Urine Glucose (UA) Negative mg/dL (NEGATIVE) Urine Ketones Negative mg/dL (NEGATIVE) Urine Blood Negative (NEGATIVE) Urine Nitrite Negative (NEGATIVE) Urine Bilirubin Negative (NEGATIVE) Urine Urobilinogen Negative mg/dL (0.2-1.9) Urine Leukocyte Esterase Negative (NEGATIVE) Urine RBC None /HPF (0-2/HPF) Urine WBC <1 /HPF (0-5/HPF) Urine Squamous Epithelial Cells Few /LPF (</=FEW) Urine Bacteria Few /HPF (NONE-FEW) Urine Mucus None /HPF (NONE-FEW) Urinalysis Test 08/29/18 08:28 Urine Color Straw Urine Clarity Clear Urine pH 7.0 pH (4.8-9.5) Urine Specific Comfort 1.005 Urine Protein Negative mg/dL (NEGATIVE) Urine Glucose (UA) Negative mg/dL (NEGATIVE) Urine Ketones Negative mg/dL (NEGATIVE) Urine Blood Negative (NEGATIVE) Urine Nitrite Negative (NEGATIVE) Urine Bilirubin Negative (NEGATIVE) Urine Urobilinogen Negative mg/dL (0.2-1.9) Urine Leukocyte Esterase Negative (NEGATIVE) Urine RBC None /HPF (0-2/HPF) Urine WBC <1 /HPF (0-5/HPF) Urine Squamous Epithelial Cells Few /LPF (</=FEW) Urine Bacteria Few /HPF (NONE-FEW) Urine Mucus None /HPF (NONE-FEW) EKG/Imaging Imaging Location: [facility] Patient: Amy Jain : 1970 Visit/Account:[id number] Date of Sevice: 08/29/2018 EXAMINATION: CT abdomen with IV contrast CT pelvis with IV contrast HISTORY: Right lower quadrant pain. TECHNIQUE: Spiral scan was through the abdomen and pelvis during injection of nonionic iodinated intravenous contrast. Sagittal and coronal reformatted images are also submitted. One of the following dose optimization techniques was utilized in the performance of this exam: Automated exposure control; adjustment of the mA and/or kV according to the patient's size; or use of an iterative reconstruction technique. Specific details can be referenced in the facility's radiology CT exam operational policy. CONTRAST: 75 mL of IV Isovue-370 COMPARISON: None available. FINDINGS: Lower chest: Negative. Liver / biliary: Negative. Pancreas: Negative. Spleen: Negative. Adrenal glands: Negative. Kidneys: Bilateral nonobstructing kidney stones measuring up to 3 mm. 2.7 x 2.0 cm cyst in the posterior right kidney. Pelvic structures: Not well seen secondary to streak artifact from the bilateral hip arthroplasty. Postop hysterectomy. 2.9 x 2.4 cm cyst in the right ovary. Bowel: The distal appendix is mildly hyperenhancing and measures up to 8 mm with questionable mild surrounding fat stranding. No obstruction or bowel wall thickening. Peritoneum / retroperitoneum / mesenteries: Negative. Vessels: Negative. Lymph nodes: Negative. Musculoskeletal / Body wall: Bilateral hip arthroplasty. Degenerative and postsurgical changes in the lumbar spine. IMPRESSION: 1. Borderline dilated distal appendix measuring 8 mm with mild hyperenhancement and questionable mild surrounding fat stranding (coronal image 62; sagittal image 56; axial images 108-122). Possible early appendicitis versus normal appendix. 2. 2.9 x 2.4 cm right ovarian cyst. 3. Bilateral nonobstructing kidney stones measuring up to 3 mm. ED Course/Re-evaluation ED Course Patient is a 48-year-old female with a history significant for lupus, Melody- Danlos, on chronic steroids here with complaints of right lower quadrant abdominal pain which is been constant since yesterday morning. Patient denies urinary complaints, melena, diarrhea. Patient is afebrile, hemodynamically stable at time of evaluation. Patient was identified to have appendicitis on CT imaging. I discussed the findings with Dr. Rose who accepted the patient to general surgery service. Patient was stable at time of admission. Decision to Disposition Date: Sep 26, 2018 Decision to Disposition Time: 11:00 Depart Departure Latest Vital Signs Impression: Primary Impression: Appendicitis Condition: Improved Disposition: Admitted from ER New Scripts Fluconazole (DIFLUCAN) 150 Mg Tablet 300 MG PO QDAY for prophylaxis for 2 Days, CAP Prov: LINDA ROSE MD 08/30/18 ROSA DELATORRE DO Aug 29, 2018 07:05
[2018-08-29] MEDS ORDERED: NS(*) 0.9% 1000 ML BAG 1,000 ML IV ONE (07:20)
[2018-08-29] MEDS ORDERED: IOPAMIDOL 76% 75 ML INFUS BTL 75 ML ONE (07:49)
[2018-08-29] MEDS ORDERED: fentaNYL CITR 100 MCG/2 ML AMP IVP ONE ×2 (07:50→09:10)
[2018-08-29 08:10] LABS: PLATELET COUNT, AUTOMATED 293 K/uL (150-450)
--- NOTE | 2018-08-29 09:07 | RADIOLOGY IMAGING REPORT ---
FACILITY: [facility] PATIENT NAME: Amy Jain : 1970 MR: [id number] V: [id number] EXAM DATE: ORDERING PHYSICIAN: ROSA DELATORRE TECHNOLOGIST: [place] [facility] [place] Patient: Amy Jain : 1970 Visit/Account:[id number] Date of Sevice: 08/29/2018 EXAMINATION: CT abdomen with IV contrast CT pelvis with IV contrast HISTORY: Right lower quadrant pain. TECHNIQUE: Spiral scan was through the abdomen and pelvis during injection of nonionic iodinated in travenous contrast. Sagittal and coronal reformatted images are also submitted. One of the following dose optimization techniques was utilized in the performance of this exam: Autom ated exposure control; adjustment of the mA and/or kV according to the patient's size; or use of an i terative reconstruction technique. Specific details can be referenced in the facility's radiology C T exam operational policy. CONTRAST: 75 mL of IV Isovue-370 COMPARISON: None available. FINDINGS: Lower chest: Negative. Liver / biliary: Negative. Pancreas: Negative. Spleen: Negative. Adrenal glands: Negative. Kidneys: Bilateral nonobstructing kidney stones measuring up to 3 mm. 2.7 x 2.0 cm cyst in the barrel rifler button ior right kidney. Pelvic structures: Not well seen secondary to streak artifact from the bilateral hip arthroplasty. Postop hysterectomy. 2.9 x 2.4 cm cyst in the right ovary. Bowel: The distal appendix is mildly hyperenhancing and measures up to 8 mm with questionable mild marroquin rrounding fat stranding. No obstruction or bowel wall thickening. Peritoneum / retroperitoneum / mesenteries: Negative. Vessels: Negative. Lymph nodes: Negative. Musculoskeletal / Body wall: Bilateral hip arthroplasty. Degenerative and postsurgical changes in the lumbar spine. IMPRESSION: 1. Borderline dilated distal appendix measuring 8 mm with mild hyperenhancement and questionable mild surrounding fat stranding (coronal image 62; sagittal image 56; axial images 108-122). Possible mariangel y appendicitis versus normal appendix. 2. 2.9 x 2.4 cm right ovarian cyst. 3. Bilateral nonobstructing kidney stones measuring up to 3 mm. Findings concerning the appendix and right ovary were called to ROSA DELATORRE at 08/29/2018 8:59 AM. Report Dictated By: Serafin Lr MD at 08/29/2018 8:50 AM Report E-Signed By: Serafin Lr MD at 08/29/2018 9:03 AM WSN:[id number]
[2018-08-29] MEDS ORDERED: ONDANSETRON 4 MG/2 ML VIAL IVP ONE (09:30)
[2018-08-29] MEDS ORDERED: NORMOSOL R SOLN(*) 1000 ML BAG 1,000 ML IV ONE (09:35)
[2018-08-29] MEDS ORDERED: FAMOTIDINE(*) 20MG/50ML PREMIX 50 ML IVPB ONE (09:35)
[2018-08-29] MEDS ORDERED: PIPERACILLIN/TAZO* 4.5 GM VIAL 4.5 GM in NS(*) 0.9% 100 ML ADDVANT BAG 100 ML IVPB ONE (10:45)
[2018-08-29] MEDS ORDERED: BUPIV/EPI 0.25% 1:200,000 50ML INFIL ONE (11:06)
[2018-08-29] MEDS ORDERED: fentaNYL CITR 250 MCG/5 ML AMP ONE (11:14)
[2018-08-29] MEDS ORDERED: PROPOFOL EMUL(*) 10MG/ML 20 ML 20 ML ONE (11:15)
[2018-08-29] MEDS ORDERED: LIDOCAINE 2% IV 100 MG/5ML SYR ONE (11:15)
[2018-08-29] MEDS ORDERED: methylPREDNIS SUCC 125 MG/2ML IVP ONE ×2 (11:25→16:25)
[2018-08-29] MEDS ORDERED: MIDAZOLAM 2 MG/2 ML VIAL IVP ONE (11:30)
--- NOTE | 2018-08-29 11:30 | Gen Surgery History & Physical ---
History of Present Illness Chief Complaint RLQ abdominal pain History of Present Illness 48 y/o female with 24 hours of RLQ abd pain. Malaise. + Nausea Pain increased with movement; made better if she does not move/min relief with narcotics Denies vomiting, diarrhea, constipation or anorexia. Denies radiation, blood in urine, hx of jaundice or pancreatitis. Does take steroids Prednisone 10 mg QD (on taper from 20 mg- this high over past 2 months) AND Belimumab for Lupus.Melody-Danlos Syndrome/Sjgren syndrome/DJD Nl daily BMs. 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 GERD Gastroparesis Renal lithiasis, bilateral, multiple Positional orthostatic tachycardia syndrome Syncope, frequent Hypothyroidism Asthma, mild PTSD, post anesthesia Bilateral Ovarian cysts Bladder incontinence Social: Lives in [place], [place] with 27 y/o daughter Works: [employer] and [employer]; [employer]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 [place] Habits: No Tobacco or ETOH FAMILY HX; Mother Alive- Heart dz, DM Father- Alive, unknown Sister- Alive, Graves dz and Lupus Daughter- Lupus History Problems: (1) Abdominal pain, right lower quadrant Status: Acute (2) Morbid obesity with BMI of 40.0-44.9, adult Status: Chronic (3) Melody-Danlos syndrome Status: Chronic (4) Sjogrens syndrome Status: Chronic (5) Steroid dependence Status: Chronic (6) Asthma Status: Chronic (7) DJD (degenerative joint disease) Status: Chronic (8) Bladder hypertonicity Status: Chronic (9) Gastroparesis Status: Chronic (10) GERD (gastroesophageal reflux disease) Status: Chronic (11) ORTHOSTATIC HYPOTENSION Status: Chronic (12) SYNCOPE AND COLLAPSE Status: Chronic (13) POSTPROCEDURAL HYPOTHYROIDISM Status: Chronic (14) Renal calculi Status: Chronic (15) Lupus (systemic lupus erythematosus) Status: Chronic Comment: On Chronic Prednisone and Belimumab Home Meds Reported Medications Methocarbamol (ROBAXIN) 500 Mg Tablet, 1500 MG PO TID 2/23/19 Mirabegron (MYRBETRIQ) 25 Mg Tab.er.24h, 25 MG PO 08/29/18 Hyaluronate Sodium (ORTHOVISC) 30 Mg/2 Ml Disp.syrin, 30 MG IU 08/29/18 Gabapentin (GABAPENTIN) 300 Mg Capsule, 300 MG PO TID, CAPSULE 08/29/18 Belimumab (BENLYSTA) 120 Mg Vial, 120 MG IV, VIAL 08/29/18 Prednisone 10 Mg Tab (PREDNISONE 10 MG TAB) 10 Mg Tab.ds.pk, 10 MG PO, TAB 08/29/18 Nebivolol Hcl (BYSTOLIC) 5 Mg Tablet, 15 MG PO 08/29/18 Levothyroxine Sodium (LEVOTHYROXINE SODIUM) 100 Mcg Tablet, 100 MCG PO QDAY, TAB 08/29/18 Lorazepam (LORAZEPAM) 1 Mg Tab, TAB 08/29/18 Tizanidine Hcl (ZANAFLEX) 4 Mg Capsule, 4 MG PO TID, CAPSULE 08/29/18 Ondansetron 4 Mg Odt (ONDANSETRON 4 MG ODT) 4 Mg Tab.rapdis, 4 MG PO ONCE, TAB 08/29/18 Promethazine Hcl (PROMETHAZINE HCL) 25 Mg Tablet, 25 MG PO Q8H, TAB 08/29/18 Hydrocodone Bit/Acetaminophen (NORCO 5-325 TABLET) 1 Each Tablet, 10 MG PO Q4- 6H, TAB 08/29/18 Amitriptyline Hcl (AMITRIPTYLINE HCL) 50 Mg Tablet, 50 MG PO QHS, #5 TAB 08/29/18 Diclofenac Submicronized (Zorvolex) 18 Mg Capsule 08/29/18 Esomeprazole Magnesium (NEXIUM) 40 Mg Capsule.dr, 1 CAP PO QDAY, CAP 08/29/18 Allergies: Coded Allergies: tetracycline (Verified Allergy, Severe, 05/31/18) acetaminophen (Verified Allergy, Intermediate, 05/31/18) hydromorphone (Verified Allergy, Intermediate, 05/31/18) morphine (Verified Allergy, Intermediate, 05/31/18) oxycodone (Verified Allergy, Intermediate, 05/31/18) propoxyphene (Verified Allergy, Intermediate, 05/31/18) azithromycin (Verified Allergy, Unknown, 05/31/18) erythromycin base (Verified Allergy, Unknown, 05/31/18) Review of Systems Constitutional: Weight Gain (7-8 pounds past 2 months with steroid use); No Fever, No Weight Loss, No Chills, No Night Sweats Neurological: Syncope (Chronic- has a working dog for this); No Confusion, No Weakness, No Dizziness, No Slurred Speech Eyes: Vision Change (Chronic , intermiottent, none recently); No Loss of Vision ENT: No Hearing Loss, No Sinus Congestion, No Sore Throat Cardiovascular: Chest Pain (When having PVCs); No Palpitations, No Orthostatic Hypotension Respiratory: Shortness of Breath (More since Nov- less frequent ambulation due to hip surgery); No Cough, No Wheezing Gastrointestinal: Nausea; No Vomiting, No Diarrhea, No Dysphagia, No Constipation; Early Satiety; No Hematemesis, No Hematochezia, No Melena; Abdominal Pain (RLQ without radiation or migration) Genitourinary: No Dysuria, No Hematuria, No Urinary Incontinence Musculoskeletal: Pain (Right Hip), Impaired Mobility; No Sprain, No Strain Psychiatric: No Depression, No Anxiety Other Bruises easily; No bleeding issues Exam General Appearance: Alert, Awake, Afebrile, Other (Mild distress; Worse with movement; BMI 40) Neuro: No Gross deficits Eyes: PERRLA, Other (EOMI) ENT: Normal, Moist Mucous Membranes, Oropharynx Clear Neck: No Masses Cardiovascular: Normal Rhythm & Peripheral Pulses, Regular Rate and Rhythm, No Edema, No JVD Respiratory: No Respiratory Distress, Clear to Auscultation GI: Other (RLQ tenderness with percussion tenderness and guarding; No Rovsings; Soft else where; BMI 40- obese; No palpable hernia) : Normal, No CVA Tenderness Lymph: No Adenopathy Musculoskeletal: Other (Veras with Right hip motion) Extremities: Soft and Non Tender, Warm, Pulses, Perfused; No Edema Integumentary: Skin Intact without Lesion / Mass; No Jaundice, No Pallor, No Cyanosis Psych: Alert & Oriented X3, Appropriate Mood & Affect Medical Decision Making Data Points Result Diagram: 08/29/18 0756 08/29/18 0756 UA- negative EKG / Imaging Monitor Interpretation: Normal Sinus Rhythm Imaging CT SCAN ABD Pelvis: 1. Borderline dilated distal appendix measuring 8 mm with mild hyperenhancement and questionable mild surrounding fat stranding (coronal image 62; sagittal image 56; axial images 108-122). Possible early appendicitis versus normal appendix. 2. 2.9 x 2.4 cm right ovarian cyst. 3. Bilateral nonobstructing kidney stones measuring up to 3 mm. Findings concerning the appendix and right ovary were called to ROSA DELATORRE at 08/29/2018 8:59 AM. Serafin Lr MD at 08/29/2018 8:50 AM Pre-Admit Course Medical Record Review: Yes Assessment and Plan Problems: (1) Abdominal pain, right lower quadrant Status: Acute Assessment & Plan: HIGH risk for infection due to biologic and prednisone chronic use Discussed the risks, benefits, alternatives and complications or the dx of appendicitis and surgery for appendectomy. Pt understands that she is high risk due to her steroid use and biologics. She understands that risks include hernia, missed dx, bleeding, wound infection or abscess, need for further surgery or procedures. was present during the discussion. All questions answered. Informed consent obtained IV Zosyn, IVF Periop Steroid replacement Lap appy with eval of SB and Ovary SCDs for DVT prophylaxis (2) Melody-Danlos syndrome Status: Chronic (3) Renal calculi Status: Chronic (4) DJD (degenerative joint disease) Status: Chronic (5) Sjogrens syndrome Status: Chronic (6) GERD (gastroesophageal reflux disease) Status: Chronic (7) Asthma Status: Chronic (8) Bladder hypertonicity Status: Chronic (9) Gastroparesis Status: Chronic (10) Steroid dependence Status: Chronic (11) Morbid obesity with BMI of 40.0-44.9, adult Status: Chronic (12) POSTPROCEDURAL HYPOTHYROIDISM Status: Chronic (13) ORTHOSTATIC HYPOTENSION Status: Chronic (14) SYNCOPE AND COLLAPSE Status: Chronic (15) Lupus (systemic lupus erythematosus) Status: Chronic Time Spent: > 30 min Venous Thromboembolism VTE Risk Physician Assess for VTE Risk: Yes Patient's VTE Risk: High VTE Diagnostic Test 2 Days Prior to Admit: No Antithrombotics Is Pt On Any Antithrombotics?: No Prophylaxis Tx Contraindicated Pharmacological Contraindicati: Surgical Contraindication Problem Qualifiers (1) DJD (degenerative joint disease): Osteoarthritis type: unspecified Laterality: bilateral LINDA SUAREZ MD Aug 29, 2018 11:30
[2018-08-29] MEDS ORDERED: KETOROLAC 30 MG/ML VIAL ONE (11:45)
[2018-08-29] MEDS ORDERED: DEXAMETHASONE SOD 4 MG/ML VIAL ONE (11:45)
[2018-08-29] MEDS ORDERED: ONDANSETRON 4 MG/2 ML VIAL ONE (11:45)
[2018-08-29] MEDS ORDERED: KETAMINE HCL 200 MG/20 ML MDV ONE (11:47)
[2018-08-29] MEDS ORDERED: fentaNYL CITR 100 MCG/2 ML AMP ONE ×4 (12:36→14:13)
[2018-08-29] MEDS ORDERED: SUGAMMADEX SOD 200 MG/2 ML SDV ONE (12:52)
[2018-08-29] MEDS ORDERED: NS 0.9% IRRIGATION 1000ML PLCT IR ONE (13:09)
[2018-08-29] MEDS ORDERED: KCL/D1/2NS 20 MEQ 1000 ML 1,000 ML IV PRN (13:49)
[2018-08-29] MEDS ORDERED: ONDANSETRON 4 MG/2 ML VIAL IVP PRN (13:50)
[2018-08-29] MEDS ORDERED: fentaNYL CITR 100 MCG/2 ML AMP IVP PRN ×2 (13:50→14:20)
[2018-08-29] MEDS ORDERED: ACETAMINOPHEN 325 MG TAB PO PRN (13:50)
[2018-08-29] MEDS: METHOCARBAMOL 500 MG TAB PO SCH (15:25)
[2018-08-29] MEDS: GABAPENTIN 300 MG CAP PO SCH ×2 (15:44→21:59)
--- NOTE | 2018-08-29 16:15 | OPERATIVE REPORT 1 ---
SURGERY DATE: August 29, 2018 SURGEON: Edmond Rose MD ANESTHESIOLOGIST: Yadiel Freitas MD ANESTHESIA: General endotracheal. PREOPERATIVE DIAGNOSES 1. Right lower quadrant abdominal pain, acute appendicitis. 2. Right ovarian cyst. 3. Steroid dependency. 4. Biologic use with belimumab for her lupus and Melody-Danlos syndrome. 5. Lupus. 6. Melody-Danlos syndrome. 7. Sjgren syndrome. 8. Morbid obesity, body mass index 40.5. POSTOPERATIVE DIAGNOSES 1. Ruptured right ovarian cyst with small hemoperitoneum. 2. Thickened appendiceal tip. 3. Steroid dependency. 4. Biologic use with belimumab. 5. Lupus. 6. Melody-Danlos syndrome. 7. Sjgren syndrome. 8. Morbid obesity, body mass index 40.5. PROCEDURES PERFORMED 1. Laparoscopy. 2. Appendectomy. 3. Evaluation of small bowel and ovaries/tubes. ESTIMATED BLOOD LOSS Less than 10 mL. TOTAL FLUIDS 1000 mL. URINE OUTPUT None recorded. FINDINGS AT TIME OF SURGERY 1. Marked abdominal wall obesity requiring use of bariatric trocars. 2. Thickened appendiceal tip with no other evidence of inflammation. 3. Ruptured right ovarian cyst. 4. Small amount of hemoperitoneum. INDICATIONS Patient is a 48-year-old female with multiple medical problems to include systemic lupus as well as Melody-Danlos syndrome and severe degenerative joint disease, who is steroid dependent and recently weaned from 20 of prednisone q. day to 10 mg of prednisone q. day. Patient is also sustained on the biologic belimumab by her dip brazier. Patient does report a 7- to 8-pound weight gain over the past two months. Patient recently underwent bilateral hip replacements, the left replaced 05 August 2018 and the right replaced May 2018. Patient presented with 24 hours of right lower quadrant abdominal pain that did not radiate and had not migrated. She was tender to palpation, to include percussion tenderness with guarding. Her white blood cell count was normal. A CT scan obtained in the Emergency Department by Dr. Nelson revealed a right ovarian cyst and a thickened appendiceal tip with enhancement and some periappendiceal inflammation, albeit minor. After a long discussion with the patient and her , they have elected to undergo laparoscopy and appendectomy. Patient did receive Zosyn preoperatively as well as IV methylprednisolone. DESCRIPTION OF PROCEDURE Patient was brought to the operating room, placed in the supine position. Patient had voided just prior to coming to the operating room so a Mcnair was not placed. General endotracheal anesthesia was initiated. A WHO timeout was carried out per hospital policy. The abdomen was prepped and draped in the usual sterile fashion using ChloraPrep. A supraumbilical incision was made approximately 2 cm in length. With great difficulty due to thickness of the abdominal wall, access was obtained at this position using direct visualization. The fascia was divided sharply, and the peritoneum was also divided sharply. The Terry trocar was not long enough to fit into place; however, there were no bariatric Terry trocars available. The OR computer laboratory technician maintained positive pressure on the Terry trocar to prevent its dislodgement throughout the procedure. Next, two 5 mm trocars were placed, one in the suprapubic region, one in the left lower quadrant. All trocar sites were anesthetized with 0.5% Marcaine for postop analgesia. Attempts at use of a standard 5 mm trocar were unsuccessful and required conversion over to the bariatric 5 mm trocars in order to enter the abdomen. Care was taken upon entry of the abdomen to avoid injury to underlying bowel, the epigastric vessels, or the bladder. The abdomen was insufflated to a CO2 pressure of 15 mmHg. The abdomen was explored, revealing a normal appendix except for a thickened tip of the appendix. the patient did have a erythematous right ovarian cyst. There was a small amount of hemoperitoneum surrounding the ovarian cyst. There was no active bleeding from the cyst. The left ovary was evaluated and appeared normal. See intraoperative photos. The small intestine was run for approximately 3 feet from the terminal ileum proximally, revealing no evidence of a Meckel's diverticulum. At this point, the patient was positioned with the right side up, and laparoscopic instruments were used to dissect out the appendix. It was not retrohepatic. A window was created at the appendiceal-cecal junction. A laparoscopic GI stapler was used with a blue load stapler to staple and divide the appendix at the base approximately 2 mm from the cecal edge. Next, the Harmonic scalpel was used to divide the mesoappendix staying close to the appendix as possible. The appendiceal vessel was also divided with the Harmonic scalpel using the slow technique to ensure sealing of the vessel. Next, the appendix was placed into the Endo Catch bag and brought out through the umbilical trocar site. All fluid within the right lower quadrant was aspirated. No irrigation was carried out. Next, the CO2 pressure was decreased to 7 mmHg, and the two 5 mm trocars were removed under visualization. The Terry trocar was then removed. The midline fascia was closed using 0 PDS suture. PDS was used rather than standard Vicryl due to her obesity and chronic steroid use. The wound was irrigated. Skin edges were then reapproximated with a running 4-0 Monocryl subcuticular closure. Dermabond was used for the skin approximation. Patient's operative case took an additional 60 minutes and was made significantly more difficult secondary to her steroid induced obesity. Patient was awoken in the operating room, extubated, taken to the PACU in good condition. Sponge, needle, instrument counts were correct. Patient tolerated the procedure well with no known complications. IRA
[2018-08-29] MEDS ORDERED: NEBIVOLOL HCL 5 MG TAB PO ONE (17:00)
[2018-08-29] MEDS: APAP/HYDROCODONE 325/10 TAB PO PRN ×2 (17:40→21:59)
[2018-08-29] MEDS ORDERED: AMITRIPTYLINE HCL 25 MG TAB PO SCH (21:00)
[2018-08-29] MEDS ORDERED: LORazepam 1 MG TAB PO SCH (21:00)
[2018-08-29] MEDS ORDERED: ESOMEPRAZOLE SODIUM 40 MG PO SCH ×2 (21:25→21:30)
[2018-08-29] MEDS: DOCUSATE SODIUM 100 MG CAP PO SCH (21:59)
[2018-08-30 00:26] VITALS: BP 83/50
[2018-08-30] MEDS: APAP/HYDROCODONE 325/10 TAB PO PRN ×2 (02:16→06:24)
[2018-08-30 02:40] VITALS: BP 89/56
[2018-08-30] MEDS ORDERED: LEVOTHYROXINE SOD 0.1 MG TAB PO SCH (06:00)
[2018-08-30 07:02] VITALS: BP 91/53
[2018-08-30] MEDS ORDERED: PANTOPRAZOLE SOD 40 MG TABEC PO SCH (09:00)
[2018-08-30] MEDS ORDERED: PATIENT'S OWN MED PO SCH (09:00)
[2018-08-30] MEDS ORDERED: ENOXAPARIN 40 MG/0.4ML SYR SC SCH (09:00)
[2018-08-30] MEDS ORDERED: ESOMEPRAZOLE SODIUM 40 MG PO SCH (09:00)
[2018-08-30] MEDS: NEBIVOLOL HCL 5 MG TAB PO SCH ×2 (09:00→09:41)
[2018-08-30] MEDS: DOCUSATE SODIUM 100 MG CAP PO SCH (09:00)
--- NOTE | 2018-08-30 09:39 | General Surgery Progress Note ---
Subjective Progress Notes Subjective Ambulated; Brit regular diet this AM; urinating; + Flatus Patient Complains of: Neurological: No: Syncope, Weakness, Dizziness Cardiovascular: No: Chest Pain Respiratory: No: Shortness of Breath Gastrointestinal: Flatus; No Nausea, No Vomiting, No Bowel Movement Genitourinary: No Dysuria Physical Exam Vital Signs Date Time Temp Pulse Resp B/P (MAP) Pulse Ox O2 Delivery O2 Flow Rate FiO2 08/30/18 07:02 98.2 71 18 91/53 (66) 95 Room Air 08/30/18 02:40 1.0 Intake and Output 08/30/18 07:00 Intake Total 3990 ml Output Total 10 ml Balance 3980 ml Intake Oral 240 ml IV Total 2450 ml Other 1300 ml Output Estimated Blood Loss 10 ml # Voids 8 General Appearance: Alert, Awake, No Acute Distress, Afebrile Neuro: No Gross deficits Eyes: PERRLA, Other (EOMI) ENT: Moist Mucous Membranes Cardiovascular: Normal Rhythm & Peripheral Pulses, Regular Rate and Rhythm, No Edema Respiratory: No Respiratory Distress, Clear to Auscultation GI: Soft and Non-Tender, Other (+ BS, No tenderness away from trocar sites; no erythema. + echymosis at trocar sites) Extremities: Soft and Non Tender, Warm, Pulses, Perfused; No Edema Integumentary: Skin Intact without Lesion / Mass, Other (Wounds: echymosis only; no erythema; Dermabond in place ) Psych: Alert & Oriented X3, Appropriate Mood & Affect Result Diagram: 08/29/18 0756 08/29/18 0756 Pathology PENDING Appy Monitor Interpretation: Normal Sinus Rhythm Assessment and Plan Problems: (1) Abdominal pain, right lower quadrant Status: Acute Assessment & Plan: 08/29/18: HIGH risk for infection due to biologic and prednisone chronic use IV Zosyn, IVF, Periop Steroid replacement Lap appy with eval of SB and Ovary SCDs for DVT prophylaxis 08/30/18: POD#1 s/p Lap appy; No inflammation noted- thickened tip and some free blood- ruptured right ovarian cyst. Doing well; ambulated; Brit diet; resume home medications and prednisone. (2) Melody-Danlos syndrome Status: Chronic (3) Renal calculi Status: Chronic (4) DJD (degenerative joint disease) Status: Chronic (5) Sjogrens syndrome Status: Chronic (6) GERD (gastroesophageal reflux disease) Status: Chronic Assessment & Plan: On PPI (7) Asthma Status: Chronic (8) Bladder hypertonicity Status: Chronic (9) Gastroparesis Status: Chronic (10) Steroid dependence Status: Chronic Assessment & Plan: 08/30/18: Resume Prednisone 10 mg QD; dosed with IV x 2 yesterday (11) Morbid obesity with BMI of 40.0-44.9, adult Status: Chronic Assessment & Plan: 08/30/18: Carb controlled diet (12) POSTPROCEDURAL HYPOTHYROIDISM Status: Chronic Assessment & Plan: No sxs overnight (13) ORTHOSTATIC HYPOTENSION Status: Chronic (14) SYNCOPE AND COLLAPSE Status: Chronic Assessment & Plan: 08/30/18: None (15) Lupus (systemic lupus erythematosus) Status: Chronic Assessment & Plan: 08/30/18: Steroid replacement Time Spent: > 30 min (Documentation; Medications/order changes; D/C paperwork; F/U arrangements ) Exam Sepsis Risk: No Definite Risk Problem Qualifiers (1) DJD (degenerative joint disease): Osteoarthritis type: unspecified Laterality: bilateral ILNDA SUAREZ MD Aug 30, 2018 09:39
[2018-08-30] MEDS: METHOCARBAMOL 500 MG TAB PO SCH (09:41)
[2018-08-30] MEDS: GABAPENTIN 300 MG CAP PO SCH (09:41)
--- NOTE | 2018-08-30 09:54 | Hospitalist Depart ---
Discharge Summary Reason for Hosp/Final Diag: (1) Abdominal pain, right lower quadrant Status: Acute Hospital Course & Plan: 08/29/18: HIGH risk for infection due to biologic and prednisone chronic use IV Zosyn, IVF, Periop Steroid replacement Lap appy with eval of SB and Ovary SCDs for DVT prophylaxis 08/30/18: POD#1 s/p Lap appy; No inflammation noted- thickened tip and some free blood- ruptured right ovarian cyst. Doing well; ambulated; Brit diet; resume home medications and prednisone. D/C to Home. F/U with Dr Tan in 7-14 days to check path and wounds. Monitor for Fever, Chills, Nausea, Vomiting, abd pain. May shower x 7 days. No lifting > 20 pounds for 6 weeks. (2) Melody-Danlos syndrome Status: Chronic (3) Renal calculi Status: Chronic (4) DJD (degenerative joint disease) Status: Chronic (5) Sjogrens syndrome Status: Chronic (6) GERD (gastroesophageal reflux disease) Status: Chronic Hospital Course & Plan: On PPI (7) Asthma Status: Chronic (8) Bladder hypertonicity Status: Chronic (9) Gastroparesis Status: Chronic (10) Steroid dependence Status: Chronic Hospital Course & Plan: 08/30/18: Resume Prednisone 10 mg QD; dosed with IV x 2 yesterday (11) Morbid obesity with BMI of 40.0-44.9, adult Status: Chronic Hospital Course & Plan: 08/30/18: Carb controlled diet (12) POSTPROCEDURAL HYPOTHYROIDISM Status: Chronic Hospital Course & Plan: No sxs overnight (13) ORTHOSTATIC HYPOTENSION Status: Chronic (14) SYNCOPE AND COLLAPSE Status: Chronic Hospital Course & Plan: 08/30/18: None (15) Lupus (systemic lupus erythematosus) Status: Chronic Hospital Course & Plan: 08/30/18: Steroid replacement Departure Weight (Pounds): 229 Result Diagram: 08/29/18 0756 08/29/18 0756 Condition: Improved (Abd pain has been resolved since surgery) Discharge: Home Discharge Code Status: Full Code Follow-Up Labs: Other (Check Pathology in Surgery Clinic) Time Spent: < 30 min Discharge Instructions Home Meds Reported Medications Methocarbamol (ROBAXIN) 500 Mg Tablet, 1500 MG PO TID 08/29/18 Mirabegron (MYRBETRIQ) 25 Mg Tab.er.24h, 25 MG PO 08/29/18 Hyaluronate Sodium (ORTHOVISC) 30 Mg/2 Ml Disp.syrin, 30 MG IU 08/29/18 Gabapentin (GABAPENTIN) 300 Mg Capsule, 300 MG PO TID, CAPSULE 08/29/18 Belimumab (BENLYSTA) 120 Mg Vial, 120 MG IV, VIAL 08/29/18 Prednisone 10 Mg Tab (PREDNISONE 10 MG TAB) 10 Mg Tab.ds.pk, 10 MG PO, TAB 08/29/18 Nebivolol Hcl (BYSTOLIC) 5 Mg Tablet, 15 MG PO 08/29/18 Levothyroxine Sodium (LEVOTHYROXINE SODIUM) 100 Mcg Tablet, 100 MCG PO QDAY, TAB 08/29/18 Lorazepam (LORAZEPAM) 1 Mg Tab, TAB 08/29/18 Tizanidine Hcl (ZANAFLEX) 4 Mg Capsule, 4 MG PO TID, CAPSULE 08/29/18 Ondansetron 4 Mg Odt (ONDANSETRON 4 MG ODT) 4 Mg Tab.rapdis, 4 MG PO ONCE, TAB 08/29/18 Promethazine Hcl (PROMETHAZINE HCL) 25 Mg Tablet, 25 MG PO Q8H, TAB 08/29/18 Hydrocodone Bit/Acetaminophen (NORCO 5-325 TABLET) 1 Each Tablet, 10 MG PO Q4- 6H, TAB 08/29/18 Amitriptyline Hcl (AMITRIPTYLINE HCL) 50 Mg Tablet, 50 MG PO QHS, #5 TAB 08/29/18 Diclofenac Submicronized (Zorvolex) 18 Mg Capsule 08/29/18 Esomeprazole Magnesium (NEXIUM) 40 Mg Capsule., 1 CAP PO QDAY, CAP 08/29/18 Diet: Diabetic (Low carbohydrate diet) Activity: No Heavy Lifting Special Instructions: Follow-up with Dr. Tan in 7-14 days (please call his office for an appointment at [phone]). Monitor for Fever, Chills, Nausea, Vomiting, abd pain- return sooner for these things. No lifting greater than 20 pounds for 6 weeks. You may resume all home medications. You may shower today, but do not immerse your wounds for 1 week (no baths, pools, etc.). Return to the emergency room with symptoms of nausea/vomiting, or fever/chills. Copies to: LIZZY TAN MD ; Venous Thromboembolism VTE Risk Physician Assess for VTE Risk: Yes VTE Diagnostic Test 2 Days Prior to Admit: No Antithrombotics Is Pt On Any Antithrombotics?: Yes (Start Lovenox today; SCDs used periop) Problem Qualifiers (1) DJD (degenerative joint disease): Osteoarthritis type: unspecified Laterality: bilateral (2) Lupus (systemic lupus erythematosus): Systemic lupus erythematosus type: unspecified Systemic lupus erythematosus organ involvement: unspecified Qualified Codes: M32.9 - Systemic lupus erythematosus, unspecified LINDA SUAREZ MD Aug 30, 2018 09:53
[2018-08-30] MEDS ORDERED: FLUC150T40 PO (10:06)
[2018-08-30 10:31] VITALS: BMI 37.0
[2018-08-30 10:33] VITALS: Ht 167.6 cm; Wt 103.9 kg
[2018-08-30] MEDS ORDERED: NEBIVOLOL HCL 5 MG TAB PO SCH (14:00)
== END 2018-08-30 09:11 | disposition home or self-care (01) ==
LOC: ER 07:13 → OR 10:41 → INTOOBSV 14:45 → MED 14:45 → UNDOADMOB 14:45 → MED 14:45 → UNDODISOB 08-30 10:30
PROVIDERS: ADMIT Surgery; ATTEND Surgery
DX: K37 Unspecified appendicitis (principal)
CPT/HCPCS: 44970; 74177; 81001; 83690; 85025; 86140; 88304; 96361; 96365; 96366; 96372; 96375; 96376; 99284; G0378; J1100; J1650; J1885; J2001; J2250; J2405; J2543; J2704; J2930; J3010; J3480; J3490; J7030; J7050; Q9967; 82040; 82247; 82310; 82374; 82435; 82565; 82947; 84075; 84132; 84155; 84295; 84450; 84460; 84520

== ENCOUNTER → 2018-12-18 | Outpatient (CLI) | payer OTHER ==
[2018-08-30 10:33] VITALS: BMI 37.0
[~2018-12-18] MED LIST changes: +AMIT-108 PO; +BELI120V IV; +DICL18CA; +ESOM40CA42 PO; +FLUC150T40 PO; +GABA-549 PO; -GADOBENATE 529MG/1ML 15ML VIAL IVP ONE; +HYDR-653 PO; +LEVO-3 PO; +LOR1; +METH-542 PO; +MIRA25TA PO; +NEBI5TAB PO; +ONDA4TAB9 PO; +PRED-420 PO; +PROM-110 PO; +TIZA4CAP6 PO; +[UNRECOGNIZED DRUG - CODE] IU
--- NOTE | 2018-12-18 15:30 | RADIOLOGY IMAGING REPORT ---
FACILITY: [facility] [place] PATIENT NAME: Amy Jain : 1970 MR: [id number] V: [id number] EXAM DATE: [id number] ORDERING PHYSICIAN: MARIAH HANNA TECHNOLOGIST: Location: [facility] Patient: Amy Jain : 1970 Visit/Account:[id number] Date of Sevice: 12/18/2018 MR SPINE LUMBAR W/O CON COMPARISON: Lumbar spine MRI with and without contrast dated April 14, 2018 Additional pertinent history: Left foot drop and low back pain Technique: Multiplanar multisequence lumbar spine MRI was performed without gadolinium enhancement. FINDINGS: Postoperative changes: Patient status post previous posterior interbody fusion of L4-L5 and L3-L4. Vertebral body heights and alignment: Negative. Vertebral marrow signal: Negative. Distal thoracic cord and conus: Prominence of the epidural fat at the levels of L5-S1 and posterior t o the sacrum compatible with underlying mild epidural lipomatosis. Otherwise negative. The conus en ds at L1-L2. Surrounding soft tissues: Negative. Inspection of the disc spaces reveal the following: L5-S1: Negative. L4-L5: Postoperative changes without significant canal or neural foraminal narrowing. No change sinc e previous exam. L3-L4: Circumferential disc bulging without significant canal or neural foraminal narrowing. No villalba ge since previous exam. L2-L3: Minimal circumferential disc bulging without significant canal or neural foraminal narrowing. No change since previous exam. L1-L2: Negative. T12-L1: Negative. IMPRESSION: 1. Stable postoperative and spondylitic change as discussed above. 2. No underlying canal or neural foraminal narrowing. Report Dictated By: Alverto Mandel MD at 12/18/2018 3:20 PM Report E-Signed By: Alverto Mandel MD at 12/18/2018 3:23 PM WSN:[id number]
== END ==
LOC: MRI 04:13
PROVIDERS: ATTEND Physician Assistant Surgical
DX: M21.372 Foot drop, left foot (principal)
CPT/HCPCS: 72148

== ENCOUNTER 2019-01-21 09:45 | Outpatient (RCR) | payer OTHER ==
[2018-08-30 10:33] VITALS: BMI 37.0
--- NOTE | 2019-01-06 16:56 | PT INITIAL EVALUATION ---
MEDICAL DIAGNOSIS: Left Elbow Pain, Aftercare [facility] TREATMENT DIAGNOSIS: Left Elbow Pain, Aftercare [facility] DATE OF ONSET: 01/06/19 SUBJECTIVE: Amy is a 48 year old female presenting to physical therapy following recent injury while horseback riding resulting in L elbow open dislocation and fracture. Injury occurred on November 08 with repair of severed brachial artery. Following pt had a second surgery on November 09 with placement of external fixator which was left in place for 4 weeks. Pt also had a blood clot removed following the initial surgery. 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 Pt reports that elbow pain has been moderate, but is a little more today. She also reports some stitches have been coming out which has been irritating. Pt has PMH significant for EDS and Lupus which have all been affected by injury. 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 ROM: Elbow ROM (L,R): 6-115, 10-0-150 Wrist ROM (L,R): flexion: 100, 98, ext: 80, 94, ulnar: 48, 55, radial: 32, 31. Strength: MMT (R only): Elbow: flexion/ext: 4+/5. Wrist: flexion: 5/5, ext: 4+/5, uln: 5/5, rad: 4/5. Palpation: Pt has significant scar tissue restrictions on medial cubital fossa with cording. Additionally pt has 2 stitches on medial incision which are partially rejected and 4 stitches on the back of elbow which are partially out. Sensation: Pt reports decreased sensation on cuboid fossa around incision. Additionally pt reports occasional tingling in first 3 digits on L hand which comes and goes. All responsive to light touch. Special Tests: Pt has difficulty grasping small objects and performing fine motor tasks such as opening tea bags. ASSESSMENT: Amy shows signs and symptoms consistent with recent elbow fracture with dislocation secondary to trauma. Physical therapy is indicated for this patient to improve the above listed deficits as well as improve function with ADL's and fine motor tasks. Short Term Goals In 3 weeks pt will increase elbow ROM to 0-150 for improved function with ADL's and decreased pain. In 3 weeks pt will improve L wrist motion to equal to the contralateral limb for improved function with ADL's. In 6 weeks pt will improve L elbow and wrist strength to equal to the contralateral limb for improved function with ADL's. Patient's Goals Improve function of L elbow and wrist. PLAN: Patient to be seen for Manual Therapy/STM/MET Strengthening/condition Ice/Heat Range of Motion Ultrasound Stretching Iontophoresis Neuromuscular Re-ed Electrical Stim Posture/Body mechanics Biofeedback Home Exercise Program Mech./Manual Traction Therapeutic Activities 3x/Week for 6 Weeks If you have any questions, please contact me at . Thank you, Colette Ayon, PT, DPT, CLT Referring Provider Signature: Date: MTDD
--- NOTE | 2019-02-11 10:55 | PT PLAN OF CARE ---
Physician: Daniel Patel PA-C Patient is being seen: 1-2x/Week Therapist: Colette Ayon, PT, DPT, CLT Medical Diagnosis: Left Elbow Pain, Aftercare Following Surgery Treatment Diagnosis: Left Elbow Pain, Aftercare Following Surgery Date of Onset: 01/06/19 Date of Initial Evaluation: 01/06/19 Date patient was last seen: 01/21/19 Number of treatments: 3 Number of cancellations/No shows: 0 INTERVENTIONS: Manual Therapy/STM/MET Strengthening/condition Ice/Heat Range of Motion Ultrasound Stretching Iontophoresis Neuromuscular Re-ed Electrical Stim Posture/Body mechanics Biofeedback Home Exercise Program Mech./Manual Traction Therapeutic Activities GOALS: In 3 weeks pt will increase elbow ROM to 0-150 for improved function with ADL's and decreased pain. In 3 weeks pt will improve L wrist motion to equal to the contralateral limb for improved function with ADL's. In 6 weeks pt will improve L elbow and wrist strength to equal to the contralateral limb for improved function with ADL's. PATIENT'S GOAL: Improve function of L elbow and wrist. Status of Patient's Goals: Discontinued Patient Compliance: Fair Prognosis: Good Reasons for discharge from therapy: Amy is to discharge from physical therapy at this time secondary to poor compliance with scheduling further visits. Pt was only seen a total of 3 visits. On her last PT session pt showed improved L elbow ROM with extension full and flexion only slightly limited. Pt remained to have difficulty with subluxation of the radial head and was started on a strengthening and stabilization program for surrounding structures. Upon discharge pt is to continue with strengthening and progression of elbow, wrist and shoulder ROM and seek further PT when more able to attend sessions. ROM: Elbow ROM (L,R): 0-115, 10-0-150 Wrist ROM (L,R): flexion: 100, 98, ext: 80, 94, ulnar: 48, 55, radial: 32, 31. Strength: MMT (R only): Elbow: flexion/ext: 4+/5. Wrist: flexion: 5/5, ext: 4+/5, uln: 5/5, rad: 4/5. Palpation: Pt has significant scar tissue restrictions on medial cubital fossa with cording. If you have any questions, please feel free to contact me at [phone]. Thank you, Colette Ayon, PT, DPT, CLT MTDD
== END 2019-01-21 18:00 | disposition home or self-care (01) ==
LOC: PT 09:45
PROVIDERS: ATTEND Physician Assistant
DX: Z48.89 Encounter for other specified surgical aftercare (principal); M25.522 Pain in left elbow
CPT/HCPCS: 97162